=== PATIENT | female | born 1960 | race African-American/Black ===

== ENCOUNTER 2016-08-18 08:40 | Day surgery (SDC) | payer BC ==
[~2016-08-18] VITALS: Ht 160 cm; Wt 121.8 kg
[~2016-08-18 08:40] MED LIST: BACTRIM 400-801 TAB PO; BAYER CHEWABLE81 MG PO; CARAFATE1 G PO; GLUCOPHAGE500 MG PO; HYDROCHLOROTHIA25 MG PO; NEXIUM40 MG PO; NORVASC5 MG PO; PEPCID20 MG PO; PERCOCET 10/3251 TA1 PO; PLAVIX75 MG PO; PRILOSEC20 MG PO; SOMA350 MG PO; TRIBENZOR 20-51 EACH PO; VICTOZA0.6 MG/0.1 SQ
[2016-08-18 08:59] VITALS: BP 159/90; Ht 160 cm; Wt 121.8 kg
[2016-08-18] MEDS ORDERED: HYDROCODONE-APA1 TAB PO (09:14)
[2016-08-18 09:46] LABS: HEMATOCRIT 40.4 % (36.0-48.0); HEMOGLOBIN 13.2 g/dL (12-16); MCHC 32.7 g/dL (31.0-37.0); MCV 85.8 fL (80.0-100.0); MEAN PLATELET VOLUME 12.4 fL (7.4-10.4); RBC 4.71 10x6/uL (4.00-5.40); RDW 13.1 % (11.5-14.5); WBC 9.4 10x3/uL (4.8-10.8)
--- NOTE | 2016-08-18 12:25 | NUR ---
4899 DISCHARGE INSTRUCTIONS REVIEWED WITH PATIENT PER Zana BURNHAM RN. VERBALIZED UNDERSTANDING
--- NOTE | 2016-08-19 10:15 | OP ---
PATIENT NAME: CHRISTIAN LORENZ MEDICAL RECORD: [id number] :56 LOCATION:D[facility] ADMISSION DATE: SURGEON: JOCELYN MANNING DO DATE OF OPERATION: 08/18/2016 PROCEDURE: EGD with biopsies. SCOPE: Olympus video gastroscope. MEDICATIONS: Propofol 300 mg IV per anesthesia. INDICATIONS FOR PROCEDURE: History of Yousif's esophagus. FINDINGS: Informed consent was given. The patient was made comfortable with the above medications. After reaching an adequate level of sedation by slow IV push, the patient was placed on her left side. The endoscope was then advanced under direct visualization through the mouth to the second portion of the duodenum. The upper, middle, and lower third of the esophagus appeared normal. At the GE junction, there was some evidence of some LA class C reflux induced esophagitis. Biopsies were taken regarding the possible history of Yousif's esophagus. Scope was advanced into the stomach and retroflexed to view the cardia. There was a small sliding hiatal hernia present. In the fundus, there was evidence of prior intervention, felt to be the lap band procedure with removable lap band. There were sutures in this location with some ulcerations and granulation tissue present immediately adjacent to the sutures. Biopsies were taken. The entire mucosa of the stomach had a slightly nodular appearance consistent with edema and congestion and could possibly be gastritis. Random biopsies were taken of the antrum incisura and body of the stomach. The scope was advanced down into the duodenum where the bulb and second portion of the duodenum appeared normal. The scope was withdrawn from the patient. The patient tolerated the procedure well and there were no complications. ESTIMATED BLOOD LOSS: Less than 3 cc. IMPRESSIONS: 1. Reflux esophagitis, LA class C. Biopsies taken to rule out Yousif's. 2. Small sliding hiatal hernia. 3. Prior intervention in the fundus of the stomach. Biopsies taken of granulation tissue in ulcerations adjacent to the sutures. 4. Nodular gastric mucosa consistent with possible gastritis. Biopsies taken. PLAN AND RECOMMENDATIONS: 1. We will give a script for omeprazole 40 mg, to be taken daily. 2. I instructed the patient that she can continue her Carafate if she feels that it helps. 3. We will discharge home when recovery parameters are met. 4. Follow up biopsy specimen results. 5. We will plan for a repeat surveillance endoscopy accordingly if Yousif's mucosa is ____ on this procedure in the biopsy results. TRANSINT:[id number] Voice Confirmation ID: [id number] DOCUMENT ID: [id number] OPERATIVE REPORT [id number] HEARD,JOCELYN CAPUTO DO at 1015 CC: [id number] DICTATION DATE: 08/18/16 1125 RECEIVING WEIGHER: 08/18/16 1320 [facility] 08/18/16 [place] [id number] [place] [id number]
== END 2016-08-18 12:20 | disposition home or self-care (01) ==
LOC: D.OPS 08:40
PROVIDERS: Anesthesiology
DX: K21.0 Gastro-esophageal reflux disease with esophagitis (principal); K44.9 Diaphragmatic hernia without obstruction or gangrene; K29.50 Unspecified chronic gastritis without bleeding

== ENCOUNTER → 2016-08-26 13:35 | Outpatient (CLI) | payer BC ==
[2016-08-18 08:59] VITALS: BMI 47.5
[~2016-08-26 13:35] MED LIST changes: +HYDROCODONE-APA1 TAB PO
== END | disposition home or self-care (01) ==
LOC: D.MRI 08-25 14:30
DX: M25.562 Pain in left knee (principal)

== ENCOUNTER 2016-09-22 07:38 | Day surgery (SDC) | payer BC ==
[~2016-09-22] VITALS: Ht 160 cm; Wt 122.7 kg
[2016-09-22 09:45] VITALS: BP 148/94; Ht 160 cm; Wt 122.7 kg
[2016-09-22] MEDS ORDERED: OMEPRAZOLE20 M1 PO (09:49)
[2016-09-22 10:13] LABS: BASOPHILS 0.1 % (0-2); EOSINOPHILS 1.9 % (0-7); HEMATOCRIT 42.5 % (36.0-48.0); HEMOGLOBIN 13.8 g/dL (12-16); IMMATURE GRANULOCYTES 0.3 % (0-5); LYMPHOCYTES 18.5 % (15-50); MCH 28.2 pg (26.0-34.0); MCHC 32.5 g/dL (31.0-37.0); MCV 86.7 fL (80.0-100.0); MEAN PLATELET VOLUME 10.9 fL (7.4-10.4); MONOCYTES 8.7 % (2-11); NEUTROPHILS 70.5 % (40-80); PLATELET COUNT 237 10x3/uL (130-400); RDW 13.8 % (11.5-14.5); WBC 10.2 10x3/uL (4.8-10.8)
[2016-09-22 10:30] LABS: ANION GAP 9.8 mmol/L (8-16); CALCIUM 9.5 mg/dL (8.5-10.1); POTASSIUM - SERUM 3.8 mmol/L (3.5-5.1)
--- NOTE | 2016-09-22 14:51 | NUR ---
1135 DRESSED, AWAKE & ALERT. LIGIA DISCHARGE INSTRUCTION INFORMATION INCLUDING: MED REC., SHEET LISTING NSAIDS & BLOOD THNNERS TO AVOID, HIGH FIBER DIET INFORMATION, & DISCHARGE INSTRUCTION SHEET POST ENDOSCOPIC PROCEDURES. PT VOICED UNDERSTANDING. TO PRIVATE CAR PER WHEELCHAIR BY THIS NURSE. HOME WITH CHRISTIAN CELAYA MOTHER. Jay SANZ R.N.
--- NOTE | 2016-09-25 12:18 | OP ---
PATIENT NAME: CHRISTIAN LORENZ MEDICAL RECORD: [id number] :56 LOCATION:D[facility] ADMISSION DATE: SURGEON: JOCELYN MANNING DO DATE OF OPERATION: 09/22/2016 PROCEDURE: Colonoscopy with endoscopic mucosal resection. INDICATIONS FOR PROCEDURE: History of colon polyps and family history of colon cancer in her uncle. SCOPE: Olympus video pediatric colonoscope. MEDICATIONS: Propofol 450 mg IV per anesthesia. ESTIMATED BLOOD LOSS: Minimal. WITHDRAWAL TIME: 17 minutes. FINDINGS: Informed consent was given. The patient was made comfortable with the above medication. After reaching an adequate level of sedation by slow IV push, the patient was placed on her left side. A digital rectal examination was performed and found external hemorrhoids and skin tags. There was no bleeding. The scope was then advanced under direct visualization through the anus to the terminal ileum. The scope was slowly withdrawn and mucosa was carefully examined. The terminal ileum appeared normal. In the cecum, there was a small sessile polyp measuring approximately 4-5 mm in diameter. It was lifted with saline and a hot snare was used to remove it and endoscopic mucosal resection technique. The scope was then withdrawn further and no other polyps were visualized. There were a few diverticula noted in the sigmoid colon with small mouth openings. In the rectum, the scope was retroflexed to view the rectal wall. There were small internal hemorrhoids, which were not bleeding and showed no bleeding stigmata. The scope was then withdrawn from the patient. The patient tolerated the procedure well and there were no complications. IMPRESSION: 1. A single benign-appearing sessile polyp in the cecum removed with a saline lift and hot snare in endoscopic mucosal resection technique. 2. Mild diverticulosis of the sigmoid colon. 3. Internal and external hemorrhoids, which are small and nonbleeding. PLAN AND RECOMMENDATIONS: 1. Discharge home when recovery parameters are met. 2. High fiber diet. 3. Continue current medications. 4. Repeat colonoscopy in 5 years for surveillance regarding personal history of polyps and family history of colon cancer. TRANSINT:[id number] Voice Confirmation ID: [id number] DOCUMENT ID: [id number] OPERATIVE REPORT [id number] CHRISTIAN LORENZ JOCELYN MANNING DO at 1218 CC: [id number] DICTATION DATE: 09/22/16 1042 WEBSPHERE DEVELOPER: 09/22/161916 [facility] 09/22/16 [facility] 1909 [facility], [facility]901
== END 2016-09-22 11:35 | disposition home or self-care (01) ==
LOC: D.OPS 07:38
PROVIDERS: Anesthesiology
DX: D12.0 Benign neoplasm of cecum (principal); K64.4 Residual hemorrhoidal skin tags; K64.8 Other hemorrhoids; K57.30 Diverticulosis of large intestine without perforation or abscess without bleeding; I10 Essential (primary) hypertension; E11.9 Type 2 diabetes mellitus without complications; G47.30 Sleep apnea, unspecified; K21.9 Gastro-esophageal reflux disease without esophagitis; Z87.891 Personal history of nicotine dependence; Z01.812 Encounter for preprocedural laboratory examination

== ENCOUNTER → 2016-10-27 08:26 | Outpatient (CLI) | payer BC ==
[2016-09-22 09:45] VITALS: BMI 47.9
[~2016-10-27 08:26] MED LIST changes: +OMEPRAZOLE20 M1 PO
== END ==
LOC: D.MAMMO 08:26
DX: Z12.31 Encounter for screening mammogram for malignant neoplasm of breast (principal)

== ENCOUNTER → 2016-10-28 20:07 | Outpatient (CLI) | payer BC ==
[2016-09-22 09:45] VITALS: BMI 47.9
== END | disposition home or self-care (01) ==
LOC: D.SLEEP 20:00
DX: G47.33 Obstructive sleep apnea (adult) (pediatric) (principal)

== ENCOUNTER → 2016-10-29 11:03 | Outpatient (CLI) | payer BC ==
[2016-09-22 09:45] VITALS: BMI 47.9
== END | disposition home or self-care (01) ==
LOC: D.MAMMO 11:03
DX: R92.8 Other abnormal and inconclusive findings on diagnostic imaging of breast (principal)

== ENCOUNTER 2016-10-31 12:05 | Outpatient (CLI) | payer BC ==
[2016-09-22 09:45] VITALS: BMI 47.9
== END 2016-10-31 13:18 ==
LOC: D.MAMMO 12:05
DX: R92.8 Other abnormal and inconclusive findings on diagnostic imaging of breast (principal)

== ENCOUNTER 2016-12-17 15:04 | Inpatient (IN) | payer BC ==
[~2016-12-17] VITALS: Ht 162.6 cm; Wt 125.0 kg
[2016-12-17 15:42] LABS: BASOPHILS 0.3 % (0-2); HEMATOCRIT 39.7 % (36.0-48.0); HEMOGLOBIN 12.9 g/dL (12-16); IMMATURE GRANULOCYTES 0.2 % (0-5); LYMPHOCYTES 25.1 % (15-50); MCH 28.4 pg (26.0-34.0); MCHC 32.5 g/dL (31.0-37.0); MCV 87.4 fL (80.0-100.0); MEAN PLATELET VOLUME 10.4 fL (7.4-10.4); MONOCYTES 8.1 % (2-11); NEUTROPHILS 63.3 % (40-80); RBC 4.54 10x6/uL (4.00-5.40); RDW 13.9 % (11.5-14.5); WBC 10.5 10x3/uL (4.8-10.8)
[2016-12-17 15:43] LABS: PLATELET COUNT 292 10x3/uL (130-400)
[2016-12-17 16:11] LABS: ALBUMIN 3.4 g/dL (3.4-5.0); ALKALINE PHOSPHATASE 86 U/L (46-116); ALT (SGPT) 32 U/L (10-68); CALC OSMOLALITY 284 mosm/kg (275-300); CALCIUM 8.8 mg/dL (8.5-10.1); CARBON DIOXIDE 30.3 mmol/L (21.0-32.0); CHLORIDE - SERUM 106 mmol/L (98-107); CREATININE - SERUM 0.8 mg/dL (0.6-1.3); GLUCOSE 92 mg/dL (74-106); MAGNESIUM - SERUM 1.9 mg/dL (1.8-2.4); POTASSIUM - SERUM 3.6 mmol/L (3.5-5.1); PROTEIN - SERUM 7.5 g/dL (6.4-8.2); SODIUM 143 mmol/L (136-145); UREA NITROGEN 13 mg/dL (7-18); eGFR NON AFRICAN AMERICAN 78 mL/min (90-120)
--- NOTE | 2016-12-17 20:00 | NUR ---
RECIEVED FROM ER VIA WHEELCHAIR. ALERT,ORIENTED. SKIN WARM DRY. RESP EVEN AND UNLABORED. NO COMPLAINTS VOICED. SL TO LEFT FOREARM WIHTOUT REDNESS OR EDEMA NOTED. CL IN REACH. FAMILY AT BEDSIDE.
[2016-12-17] MEDS ORDERED: COZAAR100 MG PO (20:27)
[2016-12-17 23:58] VITALS: BP 149/75; Ht 162.6 cm; Wt 125.0 kg
[2016-12-18] VITALS: BP 133/61
--- NOTE | 2016-12-18 02:10 | NUR ---
RESTING QUIETLY. NO DISTRESS NOTED.CL IN REACH
[2016-12-18 04:00] VITALS: BP 131/66
--- NOTE | 2016-12-18 05:53 | NUR ---
AROUSES EASILY TO VERBAL STIMULI. NO COMPLAINTS VOICED. CL IN REACH
--- NOTE | 2016-12-18 08:00 | NUR ---
AWAKE AND ALERT. ORIENTED X3. NO C/O THIS AM. CAROTID DOPPLER STUDY IN PROGRESS. LUNGS ARE CLEAR BILATERALLY, NO COUGH NOTED. SKIN IS INTACT WITHOUT REDNESS EXCEPT OLD INCISION TO RIGHT BREAST OUTER PORTION WHICH IS DRAINING SEROUS DRAINAGE. IV TO RIGHT ARM IS PATENT WITHOUT REDNESS AT INSERTION SITE. SPOKE WITH CUAUHTEMOC LANIER RE PATIENT REQUEST FOR SOMETHING TO CALM HER DURING MRI. ORDERS RECEIVED.
--- NOTE | 2016-12-18 08:05 | NUR ---
Patient Name: CHRISTIAN LORENZ Admission Status: ER Accout number: [id number] Admission Date: 12-17-2016 : 1960 Admission Diagnosis: Attending: ESHA Current LOS: 1 Anticipated DC Date: Planned Disposition: Home Primary Insurance: [employer] [facility] Discharge Planning Comments: CM met with patient to assess discharge planning needs. She currently lives at home independently with her 2 grandchildren (19 & 17). She is s/p right lumpectomy from 12/03/16 @ [facility] for Breast CA. She denies any uses of HH or any other services. She plans on driving herself home, but if she needed someone to take her home she states she has plenty of help. She does uses a CPAP machine. CM will continue to follow and assist as needed PCP: Simone Galo on Jonnie Perez Christian Celaya (mother) [phone] Automobile Body Customizer: Gricel Shipley * Is the patient Alert and Oriented? Yes 0 * PCP [facility] 0 * Pharmacy [facility] 0 * Preadmission Environment Home with Family 0 * ADLs Independent 0 * Equipment CPAP 0 * List name and contact numbers for known caregivers / representatives who currently or will assist patient after discharge: CHRISTIAN CELAYA (MOTHER) [phone] 0 * Community resources currently utilized None 0 * Additional services required to return to the preadmission environment? No 0 * Can the patient safely return to the preadmission environment? Yes 0 * Has this patient been hospitalized within the prior 30 days at any hospital? Yes 0 Grand Total: 0
--- NOTE | 2016-12-18 08:20 | NUR ---
GIVEN VALIUM PO PRIOR TO MRI. OFF UNIT VIA WC FOR SAME.
[2016-12-18 08:35] VITALS: BP 164/75
--- NOTE | 2016-12-18 09:15 | NUR ---
RETURNED FROM PROCEDURE.
[2016-12-18 10:20] LABS: BASOPHILS 0.5 % (0-2); HEMATOCRIT 40.4 % (36.0-48.0); HEMOGLOBIN 13.1 g/dL (12-16); IMMATURE GRANULOCYTES 0.5 % (0-5); LYMPHOCYTES 20.9 % (15-50); MCH 28.2 pg (26.0-34.0); MCHC 32.4 g/dL (31.0-37.0); MCV 86.9 fL (80.0-100.0); MEAN PLATELET VOLUME 10.7 fL (7.4-10.4); MONOCYTES 6.3 % (2-11); NEUTROPHILS 68.8 % (40-80); PLATELET COUNT 313 10x3/uL (130-400); RBC 4.65 10x6/uL (4.00-5.40); RDW 13.7 % (11.5-14.5); WBC 10.2 10x3/uL (4.8-10.8)
--- NOTE | 2016-12-18 10:21 | NUR ---
Rehab Note- Acute Rehab Prescreen order received. Awaiting OT and PT eval at this time. Will continue to follow at this time. Thank you for this referral! Any Perez RN Clinical Liaison, [facility] Rehab
[2016-12-18 10:33] LABS: ALBUMIN 3.3 g/dL (3.4-5.0); ANION GAP 13.8 mmol/L (8-16); BILIRUBIN - TOTAL 0.73 mg/dL (0.2-1.3); CALCIUM 8.9 mg/dL (8.5-10.1); CARBON DIOXIDE 28.5 mmol/L (21.0-32.0); POTASSIUM - SERUM 3.3 mmol/L (3.5-5.1); PROTEIN - SERUM 7.4 g/dL (6.4-8.2)
[2016-12-18 10:36] LABS: CREATININE - SERUM 1.1 mg/dL (0.6-1.3)
--- NOTE | 2016-12-18 10:37 | NUR ---
REVIEW OF CHART REVEALS THE FOLLOWING: PATIENT HAS BEEN PRESCRIBED ASA 81MG. NO LIPID PANEL, ANTITHROMBOTIC, STATIN, LIPID PANEL, OR REHAB REFERRAL HAS BEEN ORDERED YET. REVIEW OF ER CHART REVEALS THE SAME. WILL FOLLOW TO ENSURE THAT CORE MEASURES ARE ADDRESSED.
[2016-12-18 11:15] LABS: APPEARANCE CLEAR (CLEAR); BILIRUBIN NEGATIVE (NEGATIVE); COLOR STRAW (YELLOW); GLUCOSE 250 mg/dL (NEGATIVE); KETONE NEGATIVE (NEGATIVE); LEUKOCYTE ESTERASE NEGATIVE (NEGATIVE); NITRITE NEGATIVE (NEGATIVE); PROTEIN NEGATIVE (NEGATIVE); UROBILINOGEN NORMAL (NORMAL)
--- NOTE | 2016-12-18 12:00 | NUR ---
FSBS 184. GIVEN 2 UNITS HUMALOG SUBQ PER SS. LUNCH SERVED IN ROOM.
[2016-12-18 12:30] VITALS: BP 123/72
[2016-12-18] MEDS ORDERED: BACTRIM DS TABL1 TAB PO (13:59)
[2016-12-18] MEDS ORDERED: FLORAJEN3 CAPS460 MG PO (14:00)
[2016-12-18] MEDS ORDERED: CIPRODEX OTIC7.5 ML RIGHT EAR (14:01)
[2016-12-18 14:39] LABS: CHOL - HDL RATIO 2.8 ratio (2.3-4.1); LDL-HDL RATIO 1.3 ratio (1.5-3.5)
--- NOTE | 2016-12-18 15:47 | NUR ---
DISCHARGED TO HOME AMBULATORY WITH FAMILY. DISCHARGE INSTRUCTIONS GIVEN BOTH VERBALLY AND WRITTEN . ALL QUESTIONS ANSWERED. PATIENT VERBALIZED UNDERSTANDING OF SAME. NEEDED PRESCRIPTIONS ESCRIBED TO PHARMACY OF CHOICE. SL TO LEFT FOREARM D/C WITH CATHETER INTACT.
--- NOTE | 2016-12-19 11:07 | EC ---
PATIENT:CHRISTIAN LORENZ DATE OF SERVICE: 12/17/16 SEX: F MEDICAL RECORD: [id number] DATE OF : 56 LOCATION:[facility] AGE OF PATIENT: 56 ADMISSION DATE: 12/17/16 REFERRING PHYSICIAN: INTERPRETING PHYSICIAN: JESSICA ORTIZ MD ECHOCARDIOGRAM REPORT ECHO CHARGES 4 ECHO COMPLETE CLINICAL DIAGNOSIS: CVA HX OF HTN/CA-BREAST ECHOCARDIOGRAPHIC MEASUREMENTS (adult normal given) AC root (d.<3.7cm) 3.4 cm LV Septum d (<1.2 cm> 1.8 cm Valve Excursion 1.8 cm LV Septum (systole) 1.9 cm Left Atria (s.<4.0cm> 3.8 cm LVPW d(<1.2cm) 1.7 cm RV (d.<2.3cm) 3.2 cm LVPW (sytole) 2.2 cm LV diastole(<5.6CM) 4.1 cm MV E-F(>70mm/sec) cm LV systole 2.3 cm LVOT Diameter 2.0 cm MV exc.(>10mm) 1.4 cm Est.ejection fraction (50-75%) % Pericardial Effusion N DOPPLER: LVIT cm/sec A 76.0 cm/sec E 84.0 cm/sec LA cm/sec RVSP 29 mmHg LVOT 100 cm/sec AOP1/2T m/s Asc. Ao 140 cm/sec RVOT 111 cm/sec RA cm/sec PA 141 cm/sec AV Gradient Peak 7.89 mmHg AV Mean 4.02 mmHg AV Area 2.5 cm MV Gradient Peak 3.68 mmHg MV Mean 1.72 mmHg MV Area cm COMMENTS: Felt Pad Cutter: 2 [facility] Aide: 3 Dr. Stanton TAPE# PACS DATE OF SERVICE: 12/18/2016 LVH present. LV internal dimensions are normal. Wall motion is normal. EF is greater than equal to 55%. Aortic valve is tricuspid. No stenosis by Doppler interrogation. Left atrium is normal at 3.8 cm. Mitral valve shows no prolapse. Trace MR. Right-sided chamber is grossly normal. Trace TR. TRANSINT:[id number] Voice Confirmation ID: [id number] DOCUMENT ID: [id number] ECHOCARDIOGRAM REPORT [id number] CHRISTIAN LORENZ JESSICA ORTIZ MD at 1107 CC: [id number] DICTATION DATE: 12/18/16 1424 SEQUINS SPOOLER: 12/18/16 1905 [facility] 12/18/16 [place] [id number] [place] [address]
--- NOTE | 2016-12-19 12:26 | NUR ---
LATE ENTRY: DISCUSSED LIPID PROFILE RESULTS WITH PATIENT. RESULTS ARE >70, BUT STILL WITHIN FACILITYS' NORMAL RANGE. PATIENT STATES THAT SHE WILL TAKE A STATIN IF INDICATED BY GREATER THAN NORMAL RESULTS. NO STATIN ORDERED PER PATIENT REQUEST.
== END 2016-12-18 15:49 | disposition home or self-care (01) | DRG 948 ==
LOC: D.ER 15:04 → D.MS 19:21
PROVIDERS: Emergency Medicine; ADMIT Family Medicine
DX: R41.82 Altered mental status, unspecified (principal); R47.81 Slurred speech; T81.89XA Other complications of procedures, not elsewhere classified, initial encounter; E11.9 Type 2 diabetes mellitus without complications; E86.0 Dehydration; M54.9 Dorsalgia, unspecified; E11.65 Type 2 diabetes mellitus with hyperglycemia; K21.9 Gastro-esophageal reflux disease without esophagitis; I10 Essential (primary) hypertension; Z87.891 Personal history of nicotine dependence

== ENCOUNTER 2017-05-04 05:24 | Day surgery (SDC) | payer BC ==
[2017-04-30 17:37] LABS: BASOPHILS 0.2 % (0-2); EOSINOPHILS 0.6 % (0-7); IMMATURE GRANULOCYTES 0.2 % (0-5); LYMPHOCYTES 14.6 % (15-50); MCH 28.5 pg (26.0-34.0); MCHC 33.3 g/dL (31.0-37.0); MCV 85.5 fL (80.0-100.0); MEAN PLATELET VOLUME 11.2 fL (7.4-10.4); NEUTROPHILS 75.4 % (40-80); PLATELET COUNT 284 10x3/uL (130-400); RBC 4.56 10x6/uL (4.00-5.40); RDW 13.2 % (11.5-14.5); WBC 12.5 10x3/uL (4.8-10.8)
[2017-04-30 17:48] LABS: APTT 22.2 SECONDS (22.8-39.4); INR 0.89 (0.85-1.17); PROTIME 11.7 SECONDS (11.6-15.0)
[2017-04-30 17:54] LABS: ANION GAP 11.3 mmol/L (8-16); CALCIUM 9.2 mg/dL (8.5-10.1); CARBON DIOXIDE 28.4 mmol/L (21.0-32.0); CREATININE - SERUM 0.9 mg/dL (0.6-1.3); POTASSIUM - SERUM 3.7 mmol/L (3.5-5.1)
[~2017-05-04] VITALS: Ht 162.6 cm; Wt 120.2 kg
[~2017-05-04 05:24] MED LIST changes: +BACTRIM DS TABL1 TAB PO; +CIPRODEX OTIC7.5 ML RIGHT EAR; +COZAAR100 MG PO; +FEMARA2.5 MG PO; +FLORAJEN3 CAPS460 MG PO; +OMEPRAZOLE40 MG PO
[2017-05-04] MEDS ORDERED: ADIPEX-P37.5 MG PO (07:34)
[2017-05-04 07:37] LABS: POTASSIUM - SERUM 3.4 mmol/L (3.5-5.1)
[2017-05-04 07:42] VITALS: BP 133/73; Ht 162.6 cm; Wt 120.2 kg
[2017-05-04] MEDS ORDERED: TORADOL10 MG PO (10:06)
[2017-05-04] MEDS ORDERED: DILAUDID4 MG PO (10:06)
--- NOTE | 2017-05-04 11:10 | NUR ---
PT REC'D TO ROOM VIA STRETCHER. DROWSY, RESPONDS EASILY TO VERBAL STIMULI. DRESSING TO LEFT KNEE C/D/I. ICE BAG IN PLACE. BANDAID IN PLACE TO LEFT SHOULDER C/D/I. 02 ON @2L PER NC. COFFEE REQUESTED AND PROVIDED.
--- NOTE | 2017-05-04 11:31 | NUR ---
PT AWAKE, SITTING UP TAKING TRAY. C/O BURNING TO LEFT KNEE BUT DOESN'T WANT RX AT THIS TIME. 02 DECREASED TO 1L.
--- NOTE | 2017-05-04 11:42 | NUR ---
TOLERATED LIQUIDS. DOZING INTERMITTENTLY.
--- NOTE | 2017-05-04 12:45 | NUR ---
02 @97% ON RA. IV D/C'D CATH INTACT.
--- NOTE | 2017-05-04 13:00 | NUR ---
D/C INSTRUCTIONS EXPLAINED TO PT. COPIES OF ALL GIVEN, WELL WRITTEN RX'S FOR DILAUDID AND TORADOL PER DR. CHRISTIAN. D/C'D HOME VIA W/C TO PRIVATE CAR.
--- NOTE | 2017-05-04 14:52 | OP ---
PATIENT NAME: CHRISTIAN LORENZ MEDICAL RECORD: [id number] :56 LOCATION:[facility] ADMISSION DATE: SURGEON: NADINE CHRISTIAN MD DATE OF OPERATION: 05/04/2017 PREOPERATIVE DIAGNOSES: Medial meniscus tear of the left knee, impingement syndrome of the left shoulder. 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 PROCEDURES: Arthroscopic partial medial meniscectomy with gentle chondroplasty, injection of the left shoulder. SURGEON: Nadine Christian MD ANESTHESIA: General. INTRAOPERATIVE COMPLICATIONS: None. SUMMARY OF PATHOLOGIC FINDINGS: The patient had a complex tear of the posterior horn of the medial meniscus and chondromalacia as described above, likely caused by the torn meniscus. OPERATIVE SUMMARY IN DETAIL: After obtaining the appropriate preoperative orthopedic surgery consent as well as anesthetic consultation, evaluation and clearance, the patient was brought to the operating room and placed on the operating table in supine position. After general laryngeal mask was administered, tourniquet was placed about the proximal aspect of the left lower extremity, left lower extremity was then prepped and draped in routine sterile fashion. Leg was elevated, exsanguinated, and tourniquet was inflated to 350 mmHg. Inferolateral portal was established followed by superomedial portal and inferomedial portal. Diagnostic arthroscopy revealed the above findings. It is of note that the lateral compartment was pristine. Combination of arthroscopic meniscotome as well as a full radius and torpedo resector was utilized to gently debride the torn meniscus back to stable meniscal elements. A gentle chondroplasty was performed on several areas of loose fissures. Having completed this, the knee was insufflated with 30 cc of 0.25% Marcaine with epinephrine and 80 mg of Depo-Medrol. Arthroscopy portals were closed in routine interrupted fashion using 4-0 Prolene. Sterile dressings were applied. Having completed the knee arthroscopy, sterile dressings have been applied. Tourniquet was deflated. ChloraPrep was used to prep the anterior aspect of the shoulder and then a 40 mg of Depo-Medrol were injected into the subacromial space with an additional 4 cc of 0.25% Marcaine plain. Having completed this, the patient was awakened, and taken to recovery room in stable condition. All final needle and sponge counts were correct. TRANSINT:[id number] Voice Confirmation ID: [id number] DOCUMENT ID: [id number] OPERATIVE REPORT [id number] HEARD,CHRISTIAN CHRISTIAN MD, NADINE PEREZ at 1452 CC: [id number] DICTATION DATE: 05/04/17 1009 HELICOPTER SPECIALIST: 05/04/17 1051 [facility] 05/04/[address] [address]
== END 2017-05-04 13:00 | disposition home or self-care (01) ==
LOC: D.OPS 05:24 → D.PAN 16:15 → D.OPS 16:15
PROVIDERS: Anesthesiology; Orthopaedic Surgery
DX: S83.232A Complex tear of medial meniscus, current injury, left knee, initial encounter (principal); M22.42 Chondromalacia patellae, left knee; M75.42 Impingement syndrome of left shoulder; Z01.812 Encounter for preprocedural laboratory examination; X58.XXXA Exposure to other specified factors, initial encounter

== ENCOUNTER → 2017-06-11 09:17 | Outpatient (CLI) | payer BC ==
[2017-05-04 07:42] VITALS: BMI 45.6
[~2017-06-11 09:17] MED LIST changes: +ADIPEX-P37.5 MG PO; +DILAUDID4 MG PO; +TORADOL10 MG PO
== END | disposition home or self-care (01) ==
LOC: D.US 09:17 → D.MAMMO 09:30
DX: N64.4 Mastodynia (principal)

== ENCOUNTER → 2017-08-06 16:24 | Outpatient (CLI) | payer BC ==
[2017-05-04 07:42] VITALS: BMI 45.6
== END | disposition home or self-care (01) ==
LOC: D.MAMMO 09:00
DX: Z85.3 Personal history of malignant neoplasm of breast (principal)

== ENCOUNTER → 2017-10-27 13:27 | Outpatient (CLI) | payer BC ==
[2017-05-04 07:42] VITALS: BMI 45.6
[~2017-10-27 13:27] MED LIST changes: +EFFEXOR37.5 MG PO; +JARDIANCE25 MG PO; +LEVAQUIN750 MG PO
[2017-10-27 14:09] LABS: BASOPHILS 0.3 % (0-2); EOSINOPHILS 2.1 % (0-7); HEMATOCRIT 40.9 % (36.0-48.0); HEMOGLOBIN 13.6 g/dL (12-16); IMMATURE GRANULOCYTES 0.2 % (0-5); LYMPHOCYTES 19.9 % (15-50); MCH 27.9 pg (26.0-34.0); MCHC 33.3 g/dL (31.0-37.0); MCV 83.8 fL (80.0-100.0); MEAN PLATELET VOLUME 10.8 fL (7.4-10.4); MONOCYTES 5.5 % (2-11); PLATELET COUNT 278 10x3/uL (130-400); RBC 4.88 10x6/uL (4.00-5.40); RDW 13.9 % (11.5-14.5); WBC 9.2 10x3/uL (4.8-10.8)
[2017-10-27 14:28] LABS: ALBUMIN 3.5 g/dL (3.4-5.0); ANION GAP 14.9 mmol/L (8-16); BILIRUBIN - TOTAL 0.5 mg/dL (0.2-1.3); CALCIUM 9.6 mg/dL (8.5-10.1); CARBON DIOXIDE 24.5 mmol/L (21.0-32.0); POTASSIUM - SERUM 3.4 mmol/L (3.5-5.1); PROTEIN - SERUM 7.8 g/dL (6.4-8.2)
== END | disposition home or self-care (01) ==
LOC: D.RAD 13:27
PROVIDERS: Emergency Medicine
DX: R06.00 Dyspnea, unspecified (principal); R05 Cough

== ENCOUNTER 2017-10-27 18:03 | Emergency (ER) | payer BC ==
[~2017-10-27] VITALS: Ht 162.6 cm; Wt 125.0 kg
[~2017-10-27 18:03] MED LIST changes: -EFFEXOR37.5 MG PO; -JARDIANCE25 MG PO; -LEVAQUIN750 MG PO
[2017-10-27 18:12] VITALS: Ht 162.6 cm; Wt 125.0 kg
[2017-10-27] MEDS ORDERED: JARDIANCE25 MG PO (18:16)
[2017-10-27] MEDS ORDERED: COZAAR100 MG PO (18:16)
[2017-10-27] MEDS ORDERED: EFFEXOR37.5 MG PO (18:16)
[2017-10-27] MEDS ORDERED: LEVAQUIN750 MG PO (21:10)
[2017-10-27 21:20] VITALS: BP 151/76
== END 2017-10-27 21:30 | disposition home or self-care (01) ==
LOC: D.ER
DX: J01.90 Acute sinusitis, unspecified (principal); J18.9 Pneumonia, unspecified organism; Z86.73 Personal history of transient ischemic attack (TIA), and cerebral infarction without residual deficits; E11.9 Type 2 diabetes mellitus without complications; I10 Essential (primary) hypertension; K21.9 Gastro-esophageal reflux disease without esophagitis

== ENCOUNTER → 2018-01-19 08:02 | Outpatient (CLI) | payer BC ==
[2017-10-27 18:12] VITALS: BMI 47.3
[~2018-01-19 08:02] MED LIST changes: +EFFEXOR37.5 MG PO; +JARDIANCE25 MG PO; +LEVAQUIN750 MG PO
== END | disposition home or self-care (01) ==
LOC: D.RAD 08:02
DX: R05 Cough (principal)

== ENCOUNTER → 2018-01-29 11:41 | Outpatient (CLI) | payer BC ==
[2017-10-27 18:12] VITALS: BMI 47.3
[2018-01-30 08:17] LABS: IMMUNOGLOBULIN A 210 mg/dL (87-352)
[2018-02-02 03:10] LABS: IMMUNOGLOBULIN E 6 IU/mL (0-100)
[2018-02-03 06:15] LABS: IGG SUBCLASS 1 817 mg/dL (248-810); IGG SUBCLASS 2 412 mg/dL (130-555); IGG SUBCLASS 3 97 mg/dL (15-102); IGG SUBCLASS 4 25 mg/dL (2-96)
== END | disposition home or self-care (01) ==
LOC: D.RT 11:41
PROVIDERS: Internal Medicine Pulmonary Disease
DX: J45.991 Cough variant asthma (principal); Z87.09 Personal history of other diseases of the respiratory system; Z87.891 Personal history of nicotine dependence; R06.00 Dyspnea, unspecified

== ENCOUNTER 2018-02-11 10:12 | Outpatient (CLI) | payer BC ==
[2017-10-27 18:12] VITALS: Ht 162.6 cm; Wt 121.4 kg
[~2018-02-11] VITALS: Ht 162.6 cm; Wt 121.4 kg
[2018-02-11 10:10] VITALS: BP 133/80; BMI 45.9
[2018-02-11 10:25] LABS: BASOPHILS 0.5 % (0-2); EOSINOPHILS 2.5 % (0-7); HEMATOCRIT 37.8 % (36.0-48.0); HEMOGLOBIN 12.6 g/dL (12-16); IMMATURE GRANULOCYTES 0.1 % (0-5); MCH 28.1 pg (26.0-34.0); MCHC 33.3 g/dL (31.0-37.0); MCV 84.2 fL (80.0-100.0); MEAN PLATELET VOLUME 10.8 fL (7.4-10.4); MONOCYTES 7.5 % (2-11); NEUTROPHILS 66.4 % (40-80); PLATELET COUNT 263 10x3/uL (130-400); RBC 4.49 10x6/uL (4.00-5.40); WBC 7.6 10x3/uL (4.8-10.8)
[2018-02-11 10:37] LABS: ANION GAP 11.5 mmol/L (8-16); CALCIUM 9.3 mg/dL (8.5-10.1); CARBON DIOXIDE 27.1 mmol/L (21.0-32.0); CREATININE - SERUM 0.9 mg/dL (0.6-1.3); POTASSIUM - SERUM 3.6 mmol/L (3.5-5.1)
[2018-02-11 10:42] LABS: APTT 23.4 SECONDS (22.8-39.4); INR 0.91 (0.85-1.17); PROTIME 11.9 SECONDS (11.6-15.0)
[2018-02-12 12:17] LABS: FUNGUS STAIN Final report (())
[2018-02-12 16:16] LABS: AFB SPECIMEN PROCESSING Concentration (())
[2018-02-26 14:22] LABS: ACID FAST CULTURE Positive (()); ACID FAST SMEAR Negative (())
[2018-03-02 08:20] LABS: M TUBERCULOSIS Negative (())
[2018-03-11 11:20] LABS: FUNGUS MYCOLOGY CULTURE Final report (())
[2018-03-12 11:19] LABS: AMIKACIN 16.0 ug/mL (())
== END 2018-02-11 13:09 | disposition home or self-care (01) ==
LOC: D.OPS 10:12
PROVIDERS: Anesthesiology; Internal Medicine Pulmonary Disease
DX: J45.991 Cough variant asthma (principal); J30.9 Allergic rhinitis, unspecified; R93.8 Abnormal findings on diagnostic imaging of other specified body structures; G47.33 Obstructive sleep apnea (adult) (pediatric); I10 Essential (primary) hypertension; K21.9 Gastro-esophageal reflux disease without esophagitis; E78.00 Pure hypercholesterolemia, unspecified; E11.9 Type 2 diabetes mellitus without complications; Z01.812 Encounter for preprocedural laboratory examination

== ENCOUNTER 2018-03-17 08:00 | Outpatient (CLI) | payer BC | END 2018-03-17 23:59 | disposition home or self-care (01) | LOC: D.CT 08:00 | DX: J45.991 Cough variant asthma (principal) ==

== ENCOUNTER → 2018-03-30 15:23 | Outpatient (CLI) | payer BC | END | disposition home or self-care (01) | LOC: D.MRI 15:23 | DX: M25.551 Pain in right hip (principal); M25.552 Pain in left hip ==

== ENCOUNTER → 2018-07-27 09:34 | Outpatient (CLI) | payer BC ==
--- NOTE | 2018-07-29 16:01 | NUR ---
ATTEMPT TO UPLOAD DIGITRAPPER TO GENERATE 24HR LPR CATHETER REPORT. UNABLE TO DO SO. PATIENT CONTACTED ON 07/28/18-STATES SHE WILL REPEAT PH PROBE PLACEMENT AND 24HR MONITORING AT A LATER DATE-PATIENT TO CALL ME TO SCHEDULE.
== END | disposition home or self-care (01) ==
LOC: D.OPS 07-15 10:30
PROVIDERS: ATTEND Internal Medicine Gastroenterology
DX: R05 Cough (principal); K21.9 Gastro-esophageal reflux disease without esophagitis; K22.70 Barrett's esophagus without dysplasia

== ENCOUNTER 2018-08-11 09:00 | Outpatient (CLI) | payer BC | END 2018-08-11 10:00 | disposition home or self-care (01) | LOC: D.MAMMO 09:00 | PROVIDERS: ATTEND Internal Medicine Medical Oncology | DX: D05.11 Intraductal carcinoma in situ of right breast (principal) ==

== ENCOUNTER → 2018-08-27 08:46 | Outpatient (CLI) | payer BC | END | disposition home or self-care (01) | LOC: D.CT 08:46 | DX: R93.89 Abnormal findings on diagnostic imaging of other specified body structures (principal) ==

== ENCOUNTER → 2019-02-09 15:25 | Outpatient (CLI) | payer BC | END | disposition home or self-care (01) | LOC: D.MRI 15:25 | PROVIDERS: ATTEND Emergency Medicine | DX: M54.16 Radiculopathy, lumbar region (principal) ==

== ENCOUNTER → 2019-03-08 08:13 | Outpatient (CLI) | payer BC ==
[~2019-03-08 08:13] MED LIST changes: +CELEXA20 MG PO; +MYRBETRIQ50 MG PO; +OZEMPIC SQ; +PROBIOTIC1 EAC1 PO; +SINGULAIR10 MG PO; +TESSALON PERLE100 MG PO
== END | disposition home or self-care (01) ==
LOC: D.CT 08:00
PROVIDERS: ATTEND Urology
DX: R31.9 Hematuria, unspecified (principal)

== ENCOUNTER → 2019-03-25 13:56 | Outpatient (CLI) | payer BC | END | disposition home or self-care (01) | LOC: D.LABREF 13:56 | PROVIDERS: ATTEND Urology | DX: R31.9 Hematuria, unspecified (principal) ==

== ENCOUNTER 2019-03-31 08:00 | Outpatient (CLI) | payer BC ==
[~2019-03-31 08:00] MED LIST changes: -CELEXA20 MG PO; -MYRBETRIQ50 MG PO; -OZEMPIC SQ; -PROBIOTIC1 EAC1 PO; -SINGULAIR10 MG PO; -TESSALON PERLE100 MG PO
[2019-04-06] MEDS ORDERED: CELEXA20 MG PO (15:40)
[2019-04-06] MEDS ORDERED: TESSALON PERLE100 MG PO (15:40)
[2019-04-06] MEDS ORDERED: PROBIOTIC1 EAC1 PO (15:40)
[2019-04-06] MEDS ORDERED: SINGULAIR10 MG PO (15:40)
[2019-04-06] MEDS ORDERED: MYRBETRIQ50 MG PO (15:41)
[2019-04-06] MEDS ORDERED: OZEMPIC SQ (15:41)
== END 2019-03-31 10:00 | disposition home or self-care (01) ==
LOC: D.MAMMO 08:00
PROVIDERS: ATTEND Emergency Medicine
DX: D05.10 Intraductal carcinoma in situ of unspecified breast (principal); Z12.39 Encounter for other screening for malignant neoplasm of breast

== ENCOUNTER 2019-04-07 11:55 | Day surgery (SDC) | payer BC ==
[2019-04-06 16:16] LABS: BASOPHILS 0.3 % (0-2); EOSINOPHILS 2.1 % (0-7); HEMATOCRIT 40.4 % (36.0-48.0); HEMOGLOBIN 13.1 g/dL (12-16); IMMATURE GRANULOCYTES 0.2 % (0-5); LYMPHOCYTES 27.1 % (15-50); MCH 28.3 pg (26.0-34.0); MCHC 32.4 g/dL (31.0-37.0); MCV 87.3 fL (80.0-100.0); MONOCYTES 8.3 % (2-11); PLATELET COUNT 279 10x3/uL (130-400); RBC 4.63 10x6/uL (4.00-5.40); RDW 13.9 % (11.5-14.5); WBC 8.8 10x3/uL (4.8-10.8)
[2019-04-06 16:26] LABS: APTT 24.8 SECONDS (22.8-39.4); INR 0.94 (0.85-1.17); PROTIME 12.1 SECONDS (11.6-15.0)
[~2019-04-07] VITALS: Ht 162.6 cm; Wt 126.1 kg
[~2019-04-07 11:55] MED LIST changes: +CELEXA20 MG PO; +MYRBETRIQ50 MG PO; +OZEMPIC SQ; +PROBIOTIC1 EAC1 PO; +SINGULAIR10 MG PO; +TESSALON PERLE100 MG PO
[2019-04-07 12:36] VITALS: BP 132/78; Ht 162.6 cm; Wt 126.1 kg
--- NOTE | 2019-04-07 14:08 | NUR ---
ARMS DOWN TO SIDE AND SECURED, MANNYRALLEN
--- NOTE | 2019-04-07 15:13 | NUR ---
1508-AMBULATED TO RESTROOM AND URINATED WITHOUT COMPLICATIONS. ICE WATER TO ROOM.
--- NOTE | 2019-04-08 09:29 | OP ---
PATIENT NAME: CHRISTIAN LORENZ MEDICAL RECORD: [id number] :56 LOCATION:D[facility] ADMISSION DATE: SURGEON: TRISTIAN WEN MD DATE OF OPERATION: 04/07/2019 SURGEON: Tristian Wen MD ANESTHESIA: General anesthesia by Lilia Mendez CRNA DIAGNOSES: Microscopic hematuria, right distal ureteral stenosis, urethral stenosis, interstitial cystitis. PROCEDURES: Cystoscopy, bilateral retrograde pyelograms, right ureteroscopy, right ureteral stent insertion 6-Irish x 22 cm with string attached. Bladder hydrodistention and intravesical Rimso instillation. FINDINGS: On cystoscopy, single ureteral orifices bilaterally. There is diffuse bladder inflammation. The right ureteral orifice is stenotic. No bladder tumors were seen. On retrograde, there is a filling defect of the right distal ureter. This is in the intramural portion of the ureter. The ureteroscopy reveals no ureteral tumors. There is ureteral stenosis of the right distal ureter, which was balloon dilated. BLOOD LOSS: None. CLINICAL HISTORY: This is a 4o-year-old female, who is a former smoker who has microscopic hematuria. On CT scan of the abdomen and pelvis, which was performed for the hematuria workup, it was noted that there was a filling defect in the right distal ureter. She comes now to have this investigated. She has no allergies to medications. She was given Ancef publication manager to the OR. DESCRIPTION OF PROCEDURE: The patient was given induction of general anesthesia. She was then placed into the lithotomy position and prepped and draped. A 21-Irish cystoscope was placed into the bladder. The scope went in with some difficulty, indicating that she has a urethral stricture. This was dilated by the scope passage. Going into the bladder, I was struck by how inflamed the bladder was. There are no bladder tumors seen. Single ureteral orifices are seen on each side. The right ureteral orifice was especially stenotic. We performed retrograde pyelograms by first injecting the left ureteral orifice through an open-ended ureteral catheter. There was no hydroureteronephrosis, no filling defects. The open-ended catheter was then removed, allowing the contrast to be evacuated from the left kidney and ureter. On the right side, the ureteral orifice was so stenotic that we could not get the ureteral catheter in. A Sensor wire was used to allow the ureteral orifice to be accessed and then the ureteral catheter was slid in over the Sensor wire. We performed a retrograde pyelogram with diluted contrast in the right side. There was some semblance of hydronephrotic right kidney with some blown out calices. There was also a region of nonvisualization or filling defect in the distal ureter, which appears to be in the intramural portion of the ureter. We then inserted the Sensor wire back into the lumen of the ureteral catheter up to the renal pelvis level. The ureteral catheter was then removed, leaving the Sensor wire in place. Over the Sensor wire, we inserted the 18-Irish x 4 cm long ureteral dilation balloon. The ureteral orifice was dilated on the right side with 12 atmospheres of pressure for a few seconds and then the pressure was reduced and eliminated. The balloon dilator was removed, leaving the wire in OPERATIVE REPORT [id number] GERDA,CHRISTIAN goodwin. We then used the semi-rigid ureteroscope. With direct vision from the ureteral orifice all the way up to the renal pelvis and upper pole oscar, no tumors were seen. The ureteroscope was then removed. We backloaded the wire onto the cystoscope. Over the wire, we inserted the 6-Irish x 22-cm ureteral stent. After the stent insertion was done, I hydrodistended the bladder with 600 mL of normal saline for about 1 minute. The bladder was then emptied. The stent was pushed into correct position, the wire was entirely withdrawn. The bladder was then emptied through the cystoscope sheath. The string on the distal end of the stent is maintained. It was taped to the suprapubic region with a piece of Tegaderm. We then emptied the bladder further using a red rubber catheter. Through the lumen of the red rubber catheter, the intravesical Rimso solution was instilled. A 50 mL of Rimso solution was used. The catheter was then removed, leaving the solution in the bladder. The patient will void out the solution with time. I will see her in followup next week to remove the right ureteral stent. TRANSINT:[id number] Voice Confirmation ID: [id number] DOCUMENT ID: [id number] TRISTIAN WEN MD at 0929 CC: [id number] DICTATION DATE: 04/07/19 1443 GRAIN II FARMWORKER: 04/07/19 1725 [facility] 04/07/19 [address] [place] [address]
== END 2019-04-07 16:08 | disposition home or self-care (01) ==
LOC: D.OPS 11:55
PROVIDERS: Anesthesiology; ATTEND Urology
DX: N30.11 Interstitial cystitis (chronic) with hematuria (principal); R31.29 Other microscopic hematuria; N35.82 Other urethral stricture, female; R35.1 Nocturia; R35.0 Frequency of micturition; Z85.3 Personal history of malignant neoplasm of breast; N39.41 Urge incontinence; N39.3 Stress incontinence (female) (male); E11.9 Type 2 diabetes mellitus without complications; I10 Essential (primary) hypertension

== ENCOUNTER → 2019-04-28 16:22 | Outpatient (CLI) | payer BC ==
[2019-04-07 12:36] VITALS: BMI 47.8
== END | disposition home or self-care (01) ==
LOC: D.RAD 16:22
PROVIDERS: ATTEND Surgery
DX: E66.01 Morbid (severe) obesity due to excess calories (principal)

== ENCOUNTER 2019-05-02 12:40 | Day surgery (SDC) | payer BC ==
[2019-04-29 08:51] LABS: BASOPHILS 0.2 % (0-2); EOSINOPHILS 2.7 % (0-7); HEMATOCRIT 38.2 % (36.0-48.0); HEMOGLOBIN 12.4 g/dL (12-16); IMMATURE GRANULOCYTES 0.4 % (0-5); LYMPHOCYTES 22.8 % (15-50); MCH 27.9 pg (26.0-34.0); MCHC 32.5 g/dL (31.0-37.0); MEAN PLATELET VOLUME 10.5 fL (7.4-10.4); MONOCYTES 6.7 % (2-11); NEUTROPHILS 67.2 % (40-80); PLATELET COUNT 331 10x3/uL (130-400); RBC 4.44 10x6/uL (4.00-5.40); RDW 13.8 % (11.5-14.5); WBC 8.2 10x3/uL (4.8-10.8)
[2019-04-29 09:19] LABS: ALBUMIN 3.3 g/dL (3.4-5.0); ANION GAP 13.7 mmol/L (8-16); BILIRUBIN - TOTAL 0.32 mg/dL (0.2-1.3); CALCIUM 9.1 mg/dL (8.5-10.1); CARBON DIOXIDE 26.4 mmol/L (21.0-32.0); CHOL - HDL RATIO 2.9 ratio (2.3-4.1); CREATININE - SERUM 0.9 mg/dL (0.6-1.3); LDL-HDL RATIO 1.4 ratio (1.5-3.5); POTASSIUM - SERUM 4.1 mmol/L (3.5-5.1); PROTEIN - SERUM 6.9 g/dL (6.4-8.2); THYROID STIMULATING HORMONE 1.96 uIU/mL (0.36-3.74)
[~2019-05-02] VITALS: Ht 162.6 cm; Wt 125.0 kg
[2019-05-02 14:45] LABS: HEMATOCRIT 42.3 % (36.0-48.0); HEMOGLOBIN 13.8 g/dL (12-16); MCH 27.8 pg (26.0-34.0); MCHC 32.6 g/dL (31.0-37.0); MCV 85.1 fL (80.0-100.0); MEAN PLATELET VOLUME 11.1 fL (7.4-10.4); RBC 4.97 10x6/uL (4.00-5.40); RDW 13.7 % (11.5-14.5); WBC 11.3 10x3/uL (4.8-10.8)
[2019-05-02 15:04] VITALS: BP 129/79; Ht 162.6 cm; Wt 125.0 kg
[2019-05-02 15:16] LABS: APTT 26.8 SECONDS (22.8-39.4); INR 1.07 (0.85-1.17); PROTIME 13.4 SECONDS (11.6-15.0)
--- NOTE | 2019-05-02 19:34 | NUR ---
1730 IV REMOVED AND INSTRUCTIONS GIVEN 1745 PT DISCHARGED HOME IN W/C INSTRUCTIONS GIVEN
--- NOTE | 2019-05-03 11:06 | OP ---
PATIENT NAME: CHRISTIAN LORENZ MEDICAL RECORD: [id number] :56 LOCATION:D.[facility] ADMISSION DATE: SURGEON: JOCELYN MANNING DO DATE OF OPERATION: 05/02/2019 PROCEDURE: Colonoscopy with polypectomy and biopsies. INDICATIONS FOR PROCEDURE: Altered bowel function, diarrhea. SCOPE: Olympus video pediatric colonoscope. MEDICATIONS: Propofol 450 mg IV per anesthesia. WITHDRAWAL TIME: 11 minutes. ESTIMATED BLOOD LOSS: Minimal. COMPLICATIONS: None. FINDINGS: Informed consent was given. The patient was made comfortable with the above medication. After reaching an adequate level of sedation by slow IV push, the patient was placed on her left side. The endoscope was advanced under direct visualization through the rectum to the cecum and to the terminal ileum. The endoscope was slowly withdrawn and mucosa was carefully examined. The prep quality was excellent. There was 1 polyp visualized in the descending colon. It was a benign appearing sessile polyp, which measured approximately 3 mm in diameter. It was removed using a hot forcep in 1 piece and completely retrieved. There was evidence of moderate diverticulosis involving the descending and sigmoid colon. There was no evidence of diverticulitis. Random cold forceps biopsies were taken to submit for histopathology and to rule out the presence of microscopic colitis. Stool is also collected to send for further studies including a fecal white blood cell, C. difficile toxin, culture, ova and parasites. Retroflexion was performed in the rectum with visualization of grade I internal hemorrhoids without bleeding. The endoscope was withdrawn from the patient. The patient tolerated the procedure well and there were no complications. IMPRESSION: 1. A single benign-appearing sessile polyp was removed from the descending colon. 2. Moderate diverticulosis of the descending and sigmoid colon. 3. Grade I internal hemorrhoids without bleeding. PLAN AND RECOMMENDATIONS: 1. Discharge home when recovery parameters are met. 2. High fiber diet. 3. Continue current medications. 4. Recall colonoscopy in 5 years. 5. Follow up stool studies and biopsies. 6. Continue current medications including, cholestyramine for diarrhea. TRANSINT:[id number] Voice Confirmation ID: [id number] DOCUMENT ID: [id number] OPERATIVE REPORT [id number] CHRISTIAN LORENZ JOCELYN MANNING DO at 1107 CC: [id number] DICTATION DATE: 05/02/19 1651 FISHER SPONGE HOOKING: 12/17/19 0112 [facility] 05/02/19 [facility] [address] [place] [address]
[2019-05-08 17:07] LABS: OVA + PARASITE EXAM Final report (())
== END 2019-05-02 17:45 | disposition home or self-care (01) ==
LOC: D.OPS 12:40
PROVIDERS: Anesthesiology; ATTEND Internal Medicine Gastroenterology
DX: R19.4 Change in bowel habit (principal); R19.7 Diarrhea, unspecified

== ENCOUNTER → 2019-05-04 08:22 | Outpatient (CLI) | payer BC ==
[2019-05-02 15:04] VITALS: BMI 47.3
== END | disposition home or self-care (01) ==
LOC: D.RAD 08:00
PROVIDERS: ATTEND Surgery
DX: E66.01 Morbid (severe) obesity due to excess calories (principal)

== ENCOUNTER → 2019-08-01 08:31 | Outpatient (CLI) | payer BC ==
[2019-05-02 15:04] VITALS: BMI 47.3
== END | disposition home or self-care (01) ==
LOC: D.MRI 08:31
PROVIDERS: ATTEND Clinical Nurse Specialist Family Health
DX: M25.552 Pain in left hip (principal); R30.0 Dysuria

== ENCOUNTER 2019-08-12 10:03 | Inpatient (IN) | payer BC ==
[~2019-08-12] VITALS: Ht 162.6 cm; Wt 120.9 kg
[2019-08-12 11:08] LABS: BASOPHILS 0.2 % (0-2); EOSINOPHILS 0.3 % (0-7); HEMATOCRIT 40.2 % (36.0-48.0); HEMOGLOBIN 12.8 g/dL (12-16); IMMATURE GRANULOCYTES 0.5 % (0-5); LYMPHOCYTES 16.4 % (15-50); MCH 27.5 pg (26.0-34.0); MCHC 31.8 g/dL (31.0-37.0); MCV 86.3 fL (80.0-100.0); MEAN PLATELET VOLUME 10.7 fL (7.4-10.4); MONOCYTES 10.6 % (2-11); PLATELET COUNT 273 10x3/uL (130-400); RBC 4.66 10x6/uL (4.00-5.40); RDW 14.5 % (11.5-14.5); WBC 6.6 10x3/uL (4.8-10.8)
[2019-08-12 11:24] LABS: CALC OSMOLALITY 279 mosm/kg (275-300); CALCIUM 8.7 mg/dL (8.5-10.1); CARBON DIOXIDE 26.8 mmol/L (21.0-32.0); CHLORIDE - SERUM 102 mmol/L (98-107); CREATININE - SERUM 1.1 mg/dL (0.6-1.3); GLUCOSE 182 mg/dL (74-106); POTASSIUM - SERUM 3.2 mmol/L (3.5-5.1); SODIUM 137 mmol/L (136-145); UREA NITROGEN 14 mg/dL (7-18); eGFR NON AFRICAN AMERICAN 53 mL/min (90-120)
[2019-08-12 11:39] LABS: ALKALINE PHOSPHATASE 124 U/L (30-120); BILIRUBIN - TOTAL 0.97 mg/dL (0.2-1.3); CREATINE KINASE 66 UL (21-215); PROTEIN - SERUM 7.4 g/dL (6.4-8.2)
[2019-08-12 11:41] LABS: TROPONIN-I < 0.017 ng/mL (0.000-0.060)
[2019-08-12 12:19] LABS: ALBUMIN 3.2 g/dL (3.4-5.0); ALT (SGPT) 41 U/L (10-68); C-REACTIVE PROTEIN 4.1 mg/dL (0.0-0.9)
--- NOTE | 2019-08-12 15:37 | MORECARE ---
CASE MANAGEMENT DISCHARGE SUMMARY PATIENT: CHRISTIAN LORENZ UNIT: [id number] ADM DATE: 08/12/19 AGE: 59 : 56 SEX: F ROOM/BED: D.8241 AUTHOR: ZITA FINNEY PHYSICIAN: REFERRING PHYSICIAN: MATTHIEU SOARES MD DATE OF SERVICE: 08/12/19 Discharge Plan Patient Name: CHRISTIAN LORENZ [facility] [facility] 1960 Planned Disposition: Home Anticipated Discharge Date: Discharge Date: Expected LOS: Initial Reviewer: [email or web address] Initial Review Date: 08/12/2019 Generated: 08/12/19 4:37 pm DCPIA - Discharge Planning Initial Assessment Updated by [email or web address]: Arnaldo Becerra on 08/12/19 3:37 pm * Is the patient Alert and Oriented? Yes * How many steps to enter\exit or inside your home? * PCP DR. ESTRADA * Pharmacy [facility] ON [facility] * Preadmission Environment Home Alone * ADLs Independent * Equipment CPAP * Other Equipment [facility] - MEDICAL EQUIPMENT PROVIDER * List name and contact numbers for known caregivers / representatives who currently or will assist patient after discharge: MARILYN STALEY, DTR, GREG LORENZ, DTR, CHRISTIAN CELAYA, MOTHER, * Verbal permission to speak to the caregivers and representatives has been obtained from the patient. N/A * Community resources currently utilized None * Please name any agencies selected above. NONE * Additional services required to return to the preadmission environment? No * Can the patient safely return to the preadmission environment? Yes * Has this patient been hospitalized within the prior 30 days at any hospital? No Patient Name: CHRISTIAN LORENZ Page 20294 at 1537 All edits/amendments must be made on the electronic document DICTATION DATE: 08/12/191536 LINE SUPERVISOR: DARRELL 08/12/191536 RPT#: [id number] DC DATE: STATUS: ADM IN [facility] [address] [place] [address] END OF REPORT
--- NOTE | 2019-08-12 15:46 | MORECARE ---
CASE MANAGEMENT DISCHARGE SUMMARY PATIENT: CHRISTIAN LORENZ UNIT: [id number] ADM DATE: 08/12/19 AGE: 59 : 56 SEX: F ROOM/BED: D.7154 AUTHOR: SHARMIN,DOC PHYSICIAN: REFERRING PHYSICIAN: MATTHIEU SOARES MD DATE OF SERVICE: 08/12/19 Discharge Plan Patient Name: CHRISTIAN LORENZ Facility: [facility]:[place] : 1960 Planned Disposition: Home Anticipated Discharge Date: Discharge Date: Expected LOS: Initial Reviewer: [email or web address] Initial Review Date: 08/12/2019 Generated: 08/12/19 4:45 pm Comments DCP- Discharge Planning Updated by [email or web address]: Arnaldo Becerra on 08/12/19 2:[address] Patient Name: CHRISTIAN LORENZ Admission Status: ER Accout number: [id number] Admission Date: 08-12-2019 : 1960 Admission Diagnosis: Attending: MATTHIEU SOARES Current LOS: 1 Anticipated DC Date: Planned Disposition: Home Primary Insurance: BCTNLIFE Discharge Planning Comments: CM MET WITH PT IN ROOM TO DISCUSS DISCHARGE PLANNING AND NEEDS. PT REPORTS LIVING AT HOME INDEPENDENTLY AND ALONE. PT HAS CPAP FROM [facility] [place]. PT HAS NO OUTSIDE SERVICES ASSISTING IN THE HOME. CM DISCUSSED AVAILABILITY OF HOME HEALTH, REHAB SERVICES AND MEDICAL EQUIPMENT. PT DENIES DISCHARGE NEEDS, REPORTS SHE IS DRIVING HERSELF HOME AT DISCHARGE. PT PLANS TO DISCHARGE HOME ALONE, HAS NO ANTICIPATED DISCHARGE NEEDS AT THIS TIME. PT DRIVING SELF HOME AT DISCHARGE. CM TO FOLLOW AND ASSIST IF NECESSARY. Cement Side Laster: Arnaldo Becerra DCPIA - Discharge Planning Initial Assessment Updated by [id number]: Arnaldo Becerra on 08/12/19 3:37 pm * Is the patient Alert and Oriented? Yes * How many steps to enter\exit or inside your home? * PCP DR. ESTRADA * Pharmacy [facility] [address] * Preadmission Environment Home Alone * ADLs Independent * Equipment CPAP * Other Equipment [facility] [place] - MEDICAL EQUIPMENT PROVIDER * List name and contact numbers for known caregivers / representatives who currently or will assist patient after discharge: MARILYN STALEY DTR, GREG JONAS LORENZ, CHRISTIAN CELAYA, MOTHER, * Verbal permission to speak to the caregivers and representatives has been obtained from the patient. N/A * Community resources currently utilized None * Please name any agencies selected above. NONE * Additional services required to return to the preadmission environment? No * Can the patient safely return to the preadmission environment? Yes * Has this patient been hospitalized within the prior 30 days at any hospital? No Last DP export: 08/12/19 2:37 p Patient Name: CHRISTIAN LORENZ Page [phone] at 1546 All edits/amendments must be made on the electronic document DICTATION DATE: 08/12/191544 SOFTWARE TEST AND VALIDATION ENGINEER: DARRELL 08/12/191544 RPT#: [id number] DC DATE: STATUS: ADM IN [facility] [address] [place] [address] END OF REPORT
--- NOTE | 2019-08-12 17:32 | NUR ---
PT REFUSING DIABETIC DIET AND FSBS. STATES NOT DIABETIC, WANTS REGULAR DIET.
--- NOTE | 2019-08-12 18:30 | NUR ---
ANNABEL RIBERA WITH HEALTH DEPT CALLED FOR UPDATE. STATES FOR ANY CHANGES ON PT TO CALL WITH UPDATE PLEASE. [phone].
[2019-08-12 21:10] VITALS: BP 117/74
--- NOTE | 2019-08-12 22:00 | NUR ---
RECIEVED UP IN BED WITH EYES OPEN AND TV ON. ALERT AND ORIENTED X4. UP AD JARED. NOT WEARING O2 WHEN THIS NURSE ENTER ROOM. IV TO RT AC WITH NS AT 100CC/HR. TELEMETRY IN PLACE. REFUSES FSBS. STATING SHE TAKES PREDNISONE ALL THE TIME. UNABLE TO REDIRECT. TELEMETRY IN PLACE. DENIES ANY NEEDS AT THIS TIME.
[2019-08-13 02:06] VITALS: BP 117/74; Ht 162.6 cm; Wt 120.9 kg
[2019-08-13 05:04] LABS: BASOPHILS 0.3 % (0-2); EOSINOPHILS 0.4 % (0-7); HEMOGLOBIN 11.6 g/dL (12-16); IMMATURE GRANULOCYTES 0.4 % (0-5); LYMPHOCYTES 15.4 % (15-50); MCH 27.1 pg (26.0-34.0); MCHC 31.4 g/dL (31.0-37.0); MCV 86.4 fL (80.0-100.0); MEAN PLATELET VOLUME 10.7 fL (7.4-10.4); MONOCYTES 8.5 % (2-11); RBC 4.28 10x6/uL (4.00-5.40); RDW 14.7 % (11.5-14.5); WBC 6.7 10x3/uL (4.8-10.8)
[2019-08-13 05:13] LABS: PLATELET COUNT 211 10x3/uL (130-400)
[2019-08-13 05:20] LABS: ANION GAP 11.3 mmol/L (8-16); CALCIUM 8.5 mg/dL (8.5-10.1); CARBON DIOXIDE 25.9 mmol/L (21.0-32.0); POTASSIUM - SERUM 3.2 mmol/L (3.5-5.1)
--- NOTE | 2019-08-13 07:00 | NUR ---
RECEIVED REPORT. ASSUMED CARE OF PATIENT. PATIENT REMAINS IN ISOLATION FOR COVID-19.
--- NOTE | 2019-08-13 07:20 | NUR ---
NOC NURSE ADMINISTERING K+ ELECTROLYTE REPLACEMENT PROTOCOL AT THIS TIME.
[2019-08-13 09:28] VITALS: BP 119/77
--- NOTE | 2019-08-13 11:15 | NUR ---
FSBS 144. NO INSULIN PER SLIDING SCALE. NO DISTRESS.
[2019-08-13 11:25] VITALS: BP 118/69
[2019-08-13] MEDS ORDERED: AZITHROMYCIN500 MG PO (12:00)
[2019-08-13] MEDS ORDERED: HYDROXYCHLOROQ200 MG PO (12:01)
--- NOTE | 2019-08-13 14:31 | NUR ---
20 GAUGE IV REMOVED FROM RIGHT FOREARM. CATHETER TIP INTACT. NO BLEEDING FROM SITE. 2X2 GAUZE APPLIED AND SECURED WITH BANDAID. DISCHARGE INSTRUCTIONS PROVIDED. PATIENT VERBALIZED UNDERSTANDING OF ALL INSTRUCTIONS PROVIDED. TELEMETRY REMOVED SO PATIENT CAN GET DRESSED AT THIS TIME.
--- NOTE | 2019-08-13 15:12 | NUR ---
PATIENT LEFT UNIT VIA WHEELCHAIR AT THIS TIME WITH ALL PERSONAL BELONGINGS. PATIENT DISCHARGED TO HOME FOR SELF CARE. PATIENT DENIES ANY NEEDS UPON LEAVING UNIT.
--- NOTE | 2019-08-13 16:13 | MORECARE ---
CASE MANAGEMENT DISCHARGE SUMMARY PATIENT: CHRISTIAN LORENZ UNIT: [id number] ADM DATE: 08/12/19 AGE: 59 : 56 SEX: F ROOM/BED: D.0820 AUTHOR: SHARMIN,DOC PHYSICIAN: REFERRING PHYSICIAN: MATTHIEU SOARES MD DATE OF SERVICE: 08/13/19 Discharge Plan Patient Name: CHRISTIAN LORENZ Facility: [facility]:[place] : 1960 Planned Disposition: Home Anticipated Discharge Date: Discharge Date: 08/13/2019 Expected LOS: Initial Reviewer: [email or web address] Initial Review Date: 08/12/2019 Generated: 08/13/19 5:12 pm Comments DCP- Discharge Planning Updated by [email or web address]: Mile Wright on 08/13/19 3:[address] Patient Name: CHRISTIAN LORENZ Encounter No: [id number] : 1960 Primary Insurance: BCTNLIFE Anticipated DC Date: Planned Disposition: Home External Planned Provider: : DCP follow-up note: PT REPORTS LIVING AT HOME INDEPENDENTLY AND ALONE. PT HAS CPAP FROM [facility], AND HOME O2 WITH PORTABLE OXYGEN IN ROOM. PT HAS NO OUTSIDE SERVICES ASSISTING IN THE HOME. CM DISCUSSED AVAILABILITY OF HOME HEALTH, REHAB SERVICES AND MEDICAL EQUIPMENT. PT DENIES DISCHARGE NEEDS, REPORTS SHE IS DRIVING HERSELF HOME AT DISCHARGE. PT PLANS TO DISCHARGE HOME ALONE, HAS NO ANTICIPATED DISCHARGE NEEDS AT THIS TIME. PATIENT STATES SHE WILL REMAIN IN QUARENTINE. Mile Wright MSN,RN,CM DCP- Discharge Planning Updated by [email or web address]: Arnaldo Becerra on 08/12/19 2:[address] Patient Name: CHRISTIAN LORENZ Admission Status: ER Accout number: [id number] Admission Date: 08-12-2019 : 1960 Admission Diagnosis: Attending: MATTHIEU SOARES Current LOS: 1 Anticipated DC Date: Planned Disposition: Home Primary Insurance: BCTNLIFE Discharge Planning Comments: CM MET WITH PT IN ROOM TO DISCUSS DISCHARGE PLANNING AND NEEDS. PT REPORTS LIVING AT HOME INDEPENDENTLY AND ALONE. PT HAS CPAP FROM [facility]. PT HAS NO OUTSIDE SERVICES ASSISTING IN THE HOME. CM DISCUSSED AVAILABILITY OF HOME HEALTH, REHAB SERVICES AND MEDICAL EQUIPMENT. PT DENIES DISCHARGE NEEDS, REPORTS SHE IS DRIVING HERSELF HOME AT DISCHARGE. PT PLANS TO DISCHARGE HOME ALONE, HAS NO ANTICIPATED DISCHARGE NEEDS AT THIS TIME. PT DRIVING SELF HOME AT DISCHARGE. CM TO FOLLOW AND ASSIST IF NECESSARY. Mechanical Specialist: Arnaldo Becerra DCPIA - Discharge Planning Initial Assessment Updated by [email or web address]: Arnaldo Becerra on 08/12/19 3:37 pm * Is the patient Alert and Oriented? Yes * How many steps to enter\exit or inside your home? * PCP DR. ESTRADA * Pharmacy [facility] [address] * Preadmission Environment Home Alone * ADLs Independent * Equipment CPAP * Other Equipment [facility] - MEDICAL EQUIPMENT PROVIDER * List name and contact numbers for known caregivers / representatives who currently or will assist patient after discharge: MARILYN STALEY, DTR, GREG GERDA, DTR, CHRISTIAN CELAYA, MOTHER, * Verbal permission to speak to the caregivers and representatives has been obtained from the patient. N/A * Community resources currently utilized None * Please name any agencies selected above. NONE * Additional services required to return to the preadmission environment? No * Can the patient safely return to the preadmission environment? Yes * Has this patient been hospitalized within the prior 30 days at any hospital? No Last DP export: 08/12/19 2:46 p Patient Name: CHRISTIAN LORENZ Page 43687 at 1613 All edits/amendments must be made on the electronic document DICTATION DATE: 08/13/191611 PRODUCTION LINE: DARRELL 08/13/191611 RPT#: [id number] DC DATE:08/13/19 [facility]US: [facility] [address] [place] [address] END OF REPORT
--- NOTE | 2019-08-15 08:49 | MORECARE ---
CASE MANAGEMENT DISCHARGE SUMMARY PATIENT: CHRISTIAN LORENZ UNIT: [id number] ADM DATE: 08/12/19 AGE: 59 : 56 SEX: F ROOM/BED: D.1761 AUTHOR: SHARMIN,DOC PHYSICIAN: REFERRING PHYSICIAN: MATTHIEU SOARES MD DATE OF SERVICE: 08/15/19 Discharge Plan Patient Name: CHRISTIAN LORENZ Facility: [facility]:[place] : 1960 Planned Disposition: Home Anticipated Discharge Date: Discharge Date: 08/13/2019 Expected LOS: Initial Reviewer: [email or web address] Initial Review Date: 08/12/2019 Generated: 08/15/19 9:49 am Comments DCP- Discharge Planning Updated by [email or web address]: Mile Wright on 08/13/19 3:[address] Patient Name: CHRISTIAN LORENZ Encounter No: [id number] : 1960 Primary Insurance: BCTNLIFE Anticipated DC Date: Planned Disposition: Home External Planned Provider: : DCP follow-up note: PT REPORTS LIVING AT HOME INDEPENDENTLY AND ALONE. PT HAS CPAP FROM [facility], AND HOME O2 WITH PORTABLE OXYGEN IN ROOM. PT HAS NO OUTSIDE SERVICES ASSISTING IN THE HOME. CM DISCUSSED AVAILABILITY OF HOME HEALTH, REHAB SERVICES AND MEDICAL EQUIPMENT. PT DENIES DISCHARGE NEEDS, REPORTS SHE IS DRIVING HERSELF HOME AT DISCHARGE. PT PLANS TO DISCHARGE HOME ALONE, HAS NO ANTICIPATED DISCHARGE NEEDS AT THIS TIME. PATIENT STATES SHE WILL REMAIN IN QUARENTINE. Mile Wright MSN,RN,CM DCP- Discharge Planning Updated by [id number]: Arnaldo Becerra on 08/12/19 2:[address] Patient Name: CHRISTIAN LORENZ Admission Status: ER Accout number: [id number] Admission Date: 08-12-2019 : 1960 Admission Diagnosis: Attending: MATTHIEU SOARES Current LOS: 1 Anticipated DC Date: Planned Disposition: Home Primary Insurance: BCTNLIFE Discharge Planning Comments: CM MET WITH PT IN ROOM TO DISCUSS DISCHARGE PLANNING AND NEEDS. PT REPORTS LIVING AT HOME INDEPENDENTLY AND ALONE. PT HAS CPAP FROM [facility]. PT HAS NO OUTSIDE SERVICES ASSISTING IN THE HOME. CM DISCUSSED AVAILABILITY OF HOME HEALTH, REHAB SERVICES AND MEDICAL EQUIPMENT. PT DENIES DISCHARGE NEEDS, REPORTS SHE IS DRIVING HERSELF HOME AT DISCHARGE. PT PLANS TO DISCHARGE HOME ALONE, HAS NO ANTICIPATED DISCHARGE NEEDS AT THIS TIME. PT DRIVING SELF HOME AT DISCHARGE. CM TO FOLLOW AND ASSIST IF NECESSARY. Hospitality Manager: Arnaldo Becerra DCPIA - Discharge Planning Initial Assessment Updated by [email or web address]: Arnaldo Becerra on 08/12/19 3:37 pm * Is the patient Alert and Oriented? Yes * How many steps to enter\exit or inside your home? * PCP DR. ESTRADA * Pharmacy [facility] [address] * Preadmission Environment Home Alone * ADLs Independent * Equipment CPAP * Other Equipment [facility] - MEDICAL EQUIPMENT PROVIDER * List name and contact numbers for known caregivers / representatives who currently or will assist patient after discharge: MARILYN STALEY, DTR, GREG GERDA, DTR, CHRISTIAN CELAYA, MOTHER, * Verbal permission to speak to the caregivers and representatives has been obtained from the patient. N/A * Community resources currently utilized None * Please name any agencies selected above. NONE * Additional services required to return to the preadmission environment? No * Can the patient safely return to the preadmission environment? Yes * Has this patient been hospitalized within the prior 30 days at any hospital? No Last DP export: 08/13/19 3:13 p Patient Name: CHRISTIAN LORENZ Page 22385 at 0849 All edits/amendments must be made on the electronic document DICTATION DATE: 08/15/19848 GENERAL SALES MANAGER: DARRELL 08/15/19848 RPT#: [id number] DC DATE:08/13/19 STATUS: DIS IN [facility] [address] [place] [address] END OF REPORT
== END 2019-08-13 15:00 | disposition home or self-care (01) | DRG 867 ==
LOC: D.ER 10:03 → D.M2 14:26
PROVIDERS: Family Medicine; ADMIT Internal Medicine Nephrology; ATTEND Internal Medicine Nephrology
DX: A31.9 Mycobacterial infection, unspecified (principal); J96.01 Acute respiratory failure with hypoxia; J12.9 Viral pneumonia, unspecified; Z68.42 Body mass index [BMI] 45.0-49.9, adult; B97.29 Other coronavirus as the cause of diseases classified elsewhere; E87.6 Hypokalemia; I10 Essential (primary) hypertension; E11.9 Type 2 diabetes mellitus without complications; G47.33 Obstructive sleep apnea (adult) (pediatric); G25.81 Restless legs syndrome; E66.01 Morbid (severe) obesity due to excess calories; Z86.73 Personal history of transient ischemic attack (TIA), and cerebral infarction without residual deficits

== ENCOUNTER → 2019-09-30 08:13 | Outpatient (CLI) | payer BC ==
[2019-08-13 02:06] VITALS: BMI 45.7
--- NOTE | ~2019-09-30 | HEMODYNAMI ---
PATIENT:CHRISTIAN LORENZ MEDICAL RECORD: [id number] : 56 LOCATION:[place] ADMISSION DATE: 09/30/19 Generatedon:09/30/20199:12 Patient name: CHRISTIAN LORENZ Patient #: [id number] SSN: : 1960 Date of study: 09/30/2019 Page: Of Hemodynamic Procedure Report Patient Data Patient Demographics Procedure consent was obtained First Name: CHRISTIAN Gender: Female Last Name: GERDA : 1960 [facility] Initial: JONATHAN Age: 59 year(s) Patient #: [id number] Race: Black Additional ID: [id number] Contact details Address: [address] [place] [address] State: [place] City: [place] Zip code: [address] Past Medical History Allergies Allergen Reaction Date Comments Reported Other allergy 09/30/2019 Lasix Admission Admission Data Admission Date: 09/30/2019 Admission Time: 8:13 Procedure Procedure Types Cath Procedure Peripheral Cath Diagnostic Procedure Magnetic Tape Composer Operator Peripheral Procedures Miscellaneous Aspiration/Injection (Joint) Procedure Description Procedure Date Procedure Date: 09/30/2019 Procedure Start Time: 8:57 Procedure Staff Name Function Kamron Jensen MD Performing Physician Nanette Max RT Expander Samuel Riojas RT Monitor Procedure Data Cath Procedure Fluoroscopy Diagnostic fluoroscopy Total fluoroscopy Time: 0.5 time: 0.5 min min Diagnostic fluoroscopy Total fluoroscopy dose: 15 dose: 15 mGy mGy Hemodynamics Rest Pre Cath Intra NCS Post Cath Procedure Log Time Note 8:45:29 SAFE-T PLUS MYELOGRAM TRAY opened to sterile field. 8:45:35 Time tracking: Regular hours (M-F 7:00 - 5:00) 8:46:02 Signed procedure consent form obtained from patient. 8:47:13 8:47:28 Left Hip was prepped with betadine and draped in sterile fashion. 8:47:34 Bilateral chest area was prepped with chlora-prep and draped in sterile fashion 8:47:40 Left groin area was prepped with betadine and draped in sterile fashion 8:48:27 Patient allergic to Other allergyLasix 8:48:38 8:57:00 Physician arrived 8:57:00 Final Timeout: patient, procedure, and site verified with staff and physician. All members of the team are in agreement. 8:57:02 --------ALL STOP TIME OUT------ 8:57:07 Final Timeout: patient, procedure, and site verified with staff and physician. All members of the team are in agreement. 8:57:15 Left groin site verified by team. 8:57:20 Sedation plan: Local Anesthetic Medication:Lidocaine 8:57:30 Procedure started. 8:57:30 Full Disclosure recording started 8:57:54 Local anesthetic to Left Hip with Lidocaine 1% by Kamron Jensen MD.INITIAL ACCESS ONLY 9:10:24 Procedure ended.(Physican Out) 9:11:41 Fluoroscopy time 00.50 minutes. 9:11:44 Fluoroscopy dose: 15 mGy 9:11:44 Flurop Dose total: 15 9:12:12 BANDAIDE APPLIED SITE STABLE PT DISCHARGED Device Usage Item Name Manufacture Quantity Catalog Hospital Part Current Minimal Lot# / Number Charge Number Stock Stock Serial# Code SAFE-T [employer]usion 1 [id number] PLUS MYELOGRAM TRAY Signature Audit [place] Stage Time Signature Unsigned Intra-Procedure 09/30/2019 Samuel 9:12:33 AM [facility] RT (R) (CV) [facility] [address] [place] [address]
[~2019-09-30 08:13] MED LIST changes: +AZITHROMYCIN500 MG PO; +HYDROXYCHLOROQ200 MG PO
== END | disposition home or self-care (01) ==
LOC: D.RAD 08:13
PROVIDERS: ATTEND Orthopaedic Surgery
DX: M16.12 Unilateral primary osteoarthritis, left hip (principal)

== ENCOUNTER → 2019-10-17 12:04 | Outpatient (CLI) | payer BC ==
[2019-08-13 02:06] VITALS: BMI 45.7
== END | disposition home or self-care (01) ==
LOC: D.MRI 12:04
PROVIDERS: ATTEND Orthopaedic Surgery
DX: M54.16 Radiculopathy, lumbar region (principal)

== ENCOUNTER → 2019-11-01 11:58 | Outpatient (CLI) | payer BC ==
[2019-08-13 02:06] VITALS: BMI 45.7
== END | disposition home or self-care (01) ==
LOC: D.LABREF 11:58
PROVIDERS: ATTEND Internal Medicine Pulmonary Disease
DX: Z11.59 Encounter for screening for other viral diseases (principal)

== ENCOUNTER → 2019-11-03 08:14 | Outpatient (CLI) | payer BC ==
[2019-08-13 02:06] VITALS: BMI 45.7
== END | disposition home or self-care (01) ==
LOC: D.RT 08:00
PROVIDERS: ATTEND Internal Medicine Pulmonary Disease
DX: R06.00 Dyspnea, unspecified (principal)

== ENCOUNTER 2019-11-29 08:00 | Outpatient (CLI) | payer BC ==
[2019-08-13 02:06] VITALS: BMI 45.7
== END 2019-11-29 13:23 | disposition home or self-care (01) ==
LOC: D.MAMMO 08:00
PROVIDERS: ATTEND Internal Medicine Medical Oncology
DX: D05.11 Intraductal carcinoma in situ of right breast (principal)

== ENCOUNTER → 2020-02-16 22:03 | Outpatient (CLI) | payer BC ==
[2019-08-13 02:06] VITALS: BMI 45.7
== END | disposition home or self-care (01) ==
LOC: D.LABREF 22:03
PROVIDERS: ATTEND Orthopaedic Surgery
DX: M16.12 Unilateral primary osteoarthritis, left hip (principal)

== ENCOUNTER → 2020-03-07 09:27 | Outpatient (CLI) | payer BC ==
[2019-08-13 02:06] VITALS: BMI 45.7
[2020-03-07 10:07] LABS: CHOL - HDL RATIO 2.2 ratio (2.3-4.1)
== END | disposition home or self-care (01) ==
LOC: D.LAB 09:27
PROVIDERS: ATTEND Emergency Medicine
DX: Z13.1 Encounter for screening for diabetes mellitus (principal)